=== PATIENT | female | born 1960 | race Caucasian/White ===

== ENCOUNTER 2024-12-29 18:51 | Emergency (ER) | payer BC | END 2024-12-29 20:48 | disposition home or self-care (01) | LOC: CSHERS 18:51 | DX: S06.0XAA Concussion with loss of consciousness status unknown, initial encounter (principal); E03.9 Hypothyroidism, unspecified; Z79.890 Hormone replacement therapy; W19.XXXA Unspecified fall, initial encounter | CPT/HCPCS: 70450 ==

== ENCOUNTER 2025-10-02 10:31 | Outpatient (CLI) | payer BC | END 2025-10-02 10:32 | disposition home or self-care (01) | LOC: CSHMRI 10:31 | PROVIDERS: ATTEND Internal Medicine | DX: M51.369 Other intervertebral disc degeneration, lumbar region without mention of lumbar back pain or lower extremity pain (principal); M48.061 Spinal stenosis, lumbar region without neurogenic claudication; M48.07 Spinal stenosis, lumbosacral region | CPT/HCPCS: 72148 ==

== ENCOUNTER 2025-11-03 12:38 | Outpatient (CLI) | payer BC | END 2025-11-03 12:39 | disposition home or self-care (01) | LOC: CSHMRI 12:38 | PROVIDERS: ATTEND Physician Assistant | DX: M47.24 Other spondylosis with radiculopathy, thoracic region (principal); M51.14 Intervertebral disc disorders with radiculopathy, thoracic region | CPT/HCPCS: 72146 ==